=== PATIENT | female | born 1985 | race Caucasian/White ===

== ENCOUNTER 2020-03-10 04:55 | Inpatient (IN) ==
[2020-03-10] MEDS ORDERED: OXYTOCIN 20 UNITS in RINGER'S SOLUTION,LACTATED 1,000 ML IV ONE (05:03)
[2020-03-10 05:24] LABS: Hematocrit 34.8 % (37.0-47.0); Hemoglobin 12.1 gm/dL (12.5-16.0); Mean Cell Volume 87.7 fl (78-100); Mean Corpuscular Hemoglobin 30.5 pg (27-31); Mean Corpuscular Hgb Conc 34.8 g/dl (32-36); Mean Platelet Volume 11.1 fl (8-12.5); Neutrophil # 6.8 K/mm3 (1.3-6.0); Neutrophil % 61.5 % (42-75.0); Platelet Count 230 K/mm3 (150-450); Red Blood Count 3.97 M/mm3 (4.2-5.4); Red Cell Distribution Width 12.2 % (11.5-14.0); White Blood Count 11.1 K/mm3 (4.0-10.5)
[2020-03-10] MEDS: RINGER'S SOLUTION,LACTATED 1,000 ML IV PRN ×3 (05:31→08:16)
[2020-03-10 05:36] LABS: Albumin * 2.5 gm/dl (3.4-5.0); Anion Gap 16.3 mmol/L (6.8-13.8); BUN/Creatinine Ratio 11.9 (9.0-21.6); Bilirubin, Total 0.3 mg/dL (0.0-1.1); Ca. Corrected For Albumin 9.3 mg/dL (8.4-10.2); Calcium * 8.4 mg/dL (7.9-10.9); Carbon Dioxide 20.8 mmol/L (24-32.6); Potassium 4.1 mmol/L (3.4-4.6); Total Protein 6.4 gm/dL (6.2-8.2)
[2020-03-10 05:42] LABS: Cocaine Ur Negative (NEGATIVE); Urine Barbiturate Negative (NEGATIVE); Urine Benzodiazepines Negative (NEGATIVE); Urine Opiates Negative (NEGATIVE); Urine PCP Negative (NEGATIVE); Urine THC Negative (NEGATIVE)
[2020-03-10] MEDS ORDERED: ceFAZolin SODIUM 1 GM VIAL ONE (06:28)
--- NOTE | 2020-03-10 06:29 | HP ---
Chief Complaint - Chief Complaint Date of Service: 03/10/20 Time of Service: 06:10 History of Present Illness: 34 yo at 37 weeks presents to L&D for primary c/s due to complicated by preeclampsia with marginal previa. Patient developed elevated blood pressures early in her 36th week that have bordered on severe range. Protein/Cr ratio was over 800. Patient denies s/s of severe features. This complicated by advanced maternal age, hypothyroid, compound heterozygous MTHFR, recurrent SAB, preeclampsia, and marginal placenta previa 9mm from internal os of cervix. 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) Advanced maternal age (AMA) in Onset Date: 09/11/19 MTHFR gene mutation Onset Date: 01/05/19 Pre-eclampsia affecting , antepartum Onset Date: 03/07/20 Depression Onset Date: Unknown Eczema Onset Date: Unknown Hypothyroidism Onset Date: ~2004 Migraine Onset Date: Unknown Wears glasses Onset Date: Unknown Chemical Onset Date: Unknown x3-2 @ [facility] following IUI's Finger injury Onset Date: 04/19/16 Rt 5th Spontaneous Onset Date: ~10/2018 Following IVF Irregular menses Onset Date: 03/05/14 Surgical History: Surgical History (Last Reviewed 03/07/20 @ 09:36 by Raphael Lenz RN) History of dilation and curettage Onset Date: ~08/2018 for polyp, 12/2018 for sab Family History: Family History (Last Reviewed 03/07/20 @ 09:36 by Raphael Lenz RN) Aunt Thyroid disease Grandfather Hypertension Myocardial infarction Grandmother Diabetes maternal Cancer colon Grandmother Breast cancer paternal Mother Diverticulitis Father Alive and well Social History: (Last Reviewed 03/07/20 @ 09:36 by Raphael Lenz RN) Social History: adopted: No usp: No Marital status: household members: spouse number of children: 0 current occupational status: employed current occupation: [employer] current occupational exposures/hazards: Yes current occupational exposures/hazards comment: radiation Highest education level completed: Associate degree: academi Sexually Active: Yes Service: No Tobacco: Smoking Status: Never smoker Alcohol: alcohol intake: current alcohol intake frequency: a few times a month details: no alcohol since + UPT Substance Use: substance use type: does not use Dietary Habits: caffeine: Yes caffeine comment: 1-2/day Type: tea, carbonated beverages Exercise: Physical activity functional status: normal ROM and activity frequency: other Tonya/Gnosticist: agree to transfusion: Yes Allergies/Adverse Reactions: Allergies Allergy/AdvReac Type Severity Reaction Status Date / Time penicillin V Allergy Verified 03/10/20 05:15 Sulfa (Sulfonamide Allergy Verified 03/10/20 05:15 Antibiotics) Home Medications: HOME MEDICATIONS ascorbic acid (vitamin C) 500 mg capsule 500 mg PO DAILY cap 05/18/18 [Last Taken 03/09/20 21:00] vitamin B complex 1 tab PO DAILY 05/18/18 [Last Taken 03/09/20 21:00] PNV no.151-iron 27 mg-folic 800 mcg-omega3 260 fr-xge-jie-fish capsule 1 cap PO DAILY cap 09/11/19 [Last Taken 03/09/20] cholecalciferol (vitamin D3) 125 mcg (5,000 unit) capsule 5,000 unit PO DAILY 09/11/19 [Last Taken 03/09/20 21:00] coenzyme Q10 200 mg capsule 200 mg PO DAILY 09/11/19 [Last Taken 03/09/20 21:00] folic acid-vit B6-vit B12 2.2 mg-25 mg-1 mg tablet 2 tab PO DAILY tab 09/11/19 [Last Taken 03/09/20 21:00] levothyroxine 100 mcg capsule 100 mcg PO DAILY 09/11/19 [Last Taken 03/10/20 04:00] selenium 200 mcg capsule 200 mcg PO DAILY 09/11/19 [Last Taken 03/09/20 21:00] Exam - Exam Vital Signs: Vital Signs - Last Taken Temp 36.3 C 03/10/20 05:13 Pulse 92 03/10/20 05:13 Resp 20 03/10/20 05:13 BP 166/96 H 03/10/20 05:13 Pulse Ox 96 03/10/20 05:13 Repeat BP 154/92 Constitutional: Present: Alert, Oriented x3, Cooperative, No distress ENT Exam: Present: hearing grossly normal Neck: Absent: thyromegaly Breasts: Present: Exam deferred Respiratory: Present: lungs clear, no respiratory distress Cardiovascular/Chest: Present: regular rate, rhythm, no edema Abdomen: Present: soft, nontender, no rebound tenderness, other - gravid /Rectal: Present: Exam deferred Extremity: Present: non-tender, no calf tenderness, lower extremity edema - 1-2+ Skin Exam: Present: normal color, warm/dry, no cyanosis Neurologic: Present: normal mood/affect, oriented x 3, other - DTR - 2/4, no clonus Appearance: Present: appropriate appearance, appropriate insight Eye contact: Present: good eye contact Thoughts: Present: normal thought pattern, normal mood /affect Diagnostic Studies: Abnormal Lab Results 03/10/20 03/10/20 Range/Units 05:15 05:15 WBC 11.1 H (4.0-10.5) K/mm3 RBC 3.97 L (4.2-5.4) M/mm3 Hgb 12.1 L (12.5-16.0) gm/dL Hct 34.8 L (37.0-47.0) % Immature Gran # (Auto) 0.05 H (0.000-0.0310) K/mm3 Neutrophils # 6.8 H (1.3-6.0) K/mm3 Carbon Dioxide 20.8 L (24-32.6) mmol/L Anion Gap 16.3 H (6.8-13.8) mmol/L Random Glucose 68 L (70-110) mg/dL Alkaline Phosphatase 194 H (50-170) U/L Albumin 2.5 L (3.4-5.0) gm/dl Laboratory Results WBC 11.1 K/mm3 (4.0-10.5) H 03/10/20 05:15 RBC 3.97 M/mm3 (4.2-5.4) L 03/10/20 05:15 Hgb 12.1 gm/dL (12.5-16.0) L 03/10/20 05:15 Hct 34.8 % (37.0-47.0) L 03/10/20 05:15 MCV 87.7 fl (78-100) 03/10/20 05:15 MCH 30.5 pg (27-31) 03/10/20 05:15 MCHC 34.8 g/dl (32-36) 03/10/20 05:15 RDW 12.2 % (11.5-14.0) 03/10/20 05:15 Plt Count 230 K/mm3 (150-450) 03/10/20 05:15 MPV 11.1 fl (8-12.5) 03/10/20 05:15 Immature Gran % (Auto) 0.40 % (0.001-0.429) 03/10/20 05:15 Immature Gran # (Auto) 0.05 K/mm3 (0.000-0.0310) H 03/10/20 05:15 Neutrophils % 61.5 % (42-75.0) 03/10/20 05:15 Lymphocytes % 30.2 % (20-51) 03/10/20 05:15 Monocytes % 6.0 % (0.0-9) 03/10/20 05:15 Eosinophils % 1.5 % (0.0-3.0) 03/10/20 05:15 Basophils % 0.4 % (0.0-1.0) 03/10/20 05:15 Nucleated RBC % 0.0 k/mm3 (0-1) 03/10/20 05:15 Neutrophils # 6.8 K/mm3 (1.3-6.0) H 03/10/20 05:15 Lymphocytes # 3.36 k/mm3 (1.5-3.5) 03/10/20 05:15 Monocytes # 0.7 k/mm3 (0.0-1.0) 03/10/20 05:15 Eosinophils # 0.2 k/mm3 (0.0-0.7) 03/10/20 05:15 Absolute Basophils 0.1 k/mm3 (0.0-0.1) 03/10/20 05:15 Sodium 139 mmol/L (132-142) 03/10/20 05:15 Plasma Sodium 138 mmol/L (130-142) 03/10/20 05:15 Potassium 4.1 mmol/L (3.4-4.6) 03/10/20 05:15 Chloride 106 mmol/L (97-106) 03/10/20 05:15 Carbon Dioxide 20.8 mmol/L (24-32.6) L 03/10/20 05:15 Anion Gap 16.3 mmol/L (6.8-13.8) H 03/10/20 05:15 BUN 12 mg/dL (3-23) 03/10/20 05:15 Creatinine 1.01 mg/dL (0.4-1.4) 03/10/20 05:15 Est GFR (Non-Af Amer) 66 mL/min (60-130) 03/10/20 05:15 BUN/Creatinine Ratio 11.9 (9.0-21.6) 03/10/20 05:15 Random Glucose 68 mg/dL (70-110) L 03/10/20 05:15 Calcium 8.4 mg/dL (7.9-10.9) 03/10/20 05:15 Calcium Adj for Albumin 9.3 mg/dL (8.4-10.2) 03/10/20 05:15 Total Bilirubin 0.3 mg/dL (0.0-1.1) 03/10/20 05:15 AST 28 U/L (0-48) 03/10/20 05:15 ALT 23 U/L (19-67) 03/10/20 05:15 Alkaline Phosphatase 194 U/L (50-170) H 03/10/20 05:15 Total Protein 6.4 gm/dL (6.2-8.2) 03/10/20 05:15 Albumin 2.5 gm/dl (3.4-5.0) L 03/10/20 05:15 Urine Opiates Screen Negative (NEGATIVE) 03/10/20 05:32 Barbiturate Screen Negative (NEGATIVE) 03/10/20 05:32 Ur Phencyclidine Scrn Negative (NEGATIVE) 03/10/20 05:32 Urine Amphetamine Negative (NEGATIVE) 03/10/20 05:32 U Benzodiazepines Scrn Negative (NEGATIVE) 03/10/20 05:32 Urine Cocaine Screen Negative (NEGATIVE) 03/10/20 05:32 Urine Marijuana (THC) Negative (NEGATIVE) 03/10/20 05:32 Blood Type O Positive 03/10/20 05:15 Antibody Screen Negative 03/10/20 05:15 Assessment/Plan - Assessment/Plan (1) Preeclampsia Assessment: Admitted at 37 wks for delivery due to preeclampsia. Because of marginal previa being only 9mm from os, the r/b/a of vaginal delivery vs c/s were discussed with patient last week. I reviewed current medical literature from [facility] with her regarding the risks of each option. Patient and spouse have decided to proceed with c/s. Will proceed with primary low transverse section. Problem: Acute Qualifiers: Trimester: third trimester Qualified Code(s): O14.93 - Unspecified pre- eclampsia, third trimester (2) Marginal placenta previa Problem: Chronic (3) Compound heterozygous MTHFR mutation [id number] Problem: Chronic (4) History of recurrent , currently Problem: Chronic (5) Hypothyroid Problem: Chronic Qualifiers: Hypothyroidism type: unspecified (6) Advanced maternal age (AMA) in Problem: Chronic Non Stress Test - Status NST: 03/10/20 Reason for NST: preeclampsia Monitor Mode: External Acceleration: Present Decelerations: None Variability: Moderate 6-25 bpm Baseline Heart Rate: 135 Activity: reactive - Assessment NST Assessment: preeclampsia - Plan NST Plan: Admit to L&D
[2020-03-10] MEDS ORDERED: ONDANSETRON HCL/PF 2 MG/ML VIAL ONE (06:36)
[2020-03-10] MEDS ORDERED: EPINEPHrine 1 MG/ML AMPUL ONE (06:36)
[2020-03-10] MEDS ORDERED: NORMAL SALINE 20 ML VIAL ONE (06:36)
[2020-03-10] MEDS ORDERED: BUPIVACAINE HCL/EPINEPHRINE 50 ML VIAL IJ ONE (06:37)
--- NOTE | 2020-03-10 06:50 | ANES ---
Anesthesia Pre Procedure Eval Vitals/Labs: Last Vital Signs Temp 36.3 C 03/10/20 05:13 Pulse 92 03/10/20 05:13 Resp 20 03/10/20 05:13 BP 166/96 H 03/10/20 05:13 Pulse Ox 96 03/10/20 05:13 HOME MEDICATIONS ascorbic acid (vitamin C) 500 mg capsule 500 mg PO DAILY cap 05/18/18 [Last Taken 03/09/20 21:00] vitamin B complex 1 tab PO DAILY 05/18/18 [Last Taken 03/09/20 21:00] PNV no.151-iron 27 mg-folic 800 mcg-omega3 260 le-prt-dyu-fish capsule 1 cap PO DAILY cap 09/11/19 [Last Taken 03/09/20] cholecalciferol (vitamin D3) 125 mcg (5,000 unit) capsule 5,000 unit PO DAILY 09/11/19 [Last Taken 03/09/20 21:00] coenzyme Q10 200 mg capsule 200 mg PO DAILY 09/11/19 [Last Taken 03/09/20 21:00] folic acid-vit B6-vit B12 2.2 mg-25 mg-1 mg tablet 2 tab PO DAILY tab 09/11/19 [Last Taken 03/09/20 21:00] levothyroxine 100 mcg capsule 100 mcg PO DAILY 09/11/19 [Last Taken 03/10/20 04:00] selenium 200 mcg capsule 200 mcg PO DAILY 09/11/19 [Last Taken 03/09/20 21:00] Allergies/Adverse Reactions: Allergies Allergy/AdvReac Type Severity Reaction Status Date / Time penicillin V Allergy Verified 03/10/20 05:15 Sulfa (Sulfonamide Allergy Verified 03/10/20 05:15 Antibiotics) - Planned Procedure Planned Procedure: induction Medication List Reviewed:: Yes Allergies Verified: Yes Medical History (Last Reviewed 03/10/20 @ 06:49 by Chas Sarmiento CRNA) Hypothyroid (Chronic) History of recurrent , currently (Chronic) Compound heterozygous MTHFR mutation [id number] (Chronic) Advanced maternal age (AMA) in Onset Date: 09/11/19 MTHFR gene mutation Onset Date: 01/05/19 Pre-eclampsia affecting , antepartum Onset Date: 03/07/20 Depression Onset Date: Unknown Eczema Onset Date: Unknown Hypothyroidism Onset Date: ~2004 Migraine Onset Date: Unknown Wears glasses Onset Date: Unknown Chemical Onset Date: Unknown x3-2 @ [facility] following IUI's Finger injury Onset Date: 04/19/16 Rt 5th Spontaneous Onset Date: ~10/2018 Following IVF Irregular menses Onset Date: 03/05/14 Surgical History (Last Reviewed 03/10/20 @ 06:49 by Chas Sarmiento CRNA) History of dilation and curettage Onset Date: ~08/2018 for polyp, 12/2018 for sab Family History (Last Reviewed 03/10/20 @ 06:49 by Chas Sarmiento CRNA) Aunt Thyroid disease Grandfather Hypertension Myocardial infarction Grandmother Diabetes maternal Cancer colon Grandmother Breast cancer paternal Mother Diverticulitis Father Alive and well - Family Anesthesia History Family History:: no untoward family reactions to anesthesia - Airway/Neck/Teeth Within Normal Limits:: Yes Teeth Condition: intact Neck Exam: full range of motion Mallampatti Score: 2 Thyromental (T-M) distance: > 6 cm Mandibulo Hyoid distance: > 3 cm - Respiratory Respiratory Physical: lungs clear Smoking Status: Never smoker Sleep Apnea currently treated: No Sleep Apnea by current assessment: No - Cardiovascular Tolerate Activity: Good Heart Sounds: S1 & S2, Regular - Gastrointestinal NPO since: MN - Anesthesia Assessment and Plan ASA Class: PS, II Anesthesia Type Plan: Spinal - TAP block Planned difficult intubation/equipment available: No
--- NOTE | 2020-03-10 08:31 | OR ---
Operative Report - Dictated Report Narrative: Indication: 34-year-old 5 para 0 at 37 0/7 weeks gestation admitted for primary low transverse section due to preeclampsia with marginal previa 0.9 cm from the cervical internal os. Status: Planned Pre Operative Diagnosis: 37 0/7 weeks intrauterine . Marginal placenta previa 0.9 cm from the cervical office. Preeclampsia. Post Operative Diagnosis: Same. Procedure Preformed: Primary Low Transverse Section Surgeon: Shanthi Cervantes DO Sales Service Supervisor: OR Staff Anesthesia: Spinal, TAP block Estimated Blood Loss: 350 mL Urine Output: 50 mL of clear urine Fluids Given: 2000 mL of crystalloid Drains: Hdez to gravity Surgical Complications: None Specimens: Placenta to pathology Findings: Male born at 0735 on 03/10/2021 with Apgars 8 and 9, weighing 2803 g in OP presentation with nuchal cord x1. Normal uterus, tubes, ovaries. Technique: The patient was taken to the operating room and placed in dorsal supine position with a left lateral tilt. After adequate spinal anesthesia, hdez catheter insertion,SCDs placed, and 2 g of Ancef given preoperatively, the abdominal cavity was entered via a modified Wu-Fuentes incision. Two rolled laps were placed in the pericolic gutters on either side of the uterus. A transverse incision was made in the lower uterine segment and extended laterally and upwardly with digital traction. Clear fluid was noted upon amniotomy. The was delivered easily. Nuchal cord was reduced after delivery of the head and prior to delivery of shoulders. The cord was clamped and cut after approximately 30 seconds and was handed off to awaiting quarrying specialist. The placenta was allowed to deliver spontaneously. The uterus was cleared of clot and debris. Uterine incision was closed with 0 Vicryl using a running stitch. A second imbricating layer was placed. Excellent hemostasis was noted. Rolled laps were removed from the abdominal cavitiy. The peritoneum was closed with a running 3-0 Monocryl. The same suture was used to approximate the rectus and pyramidalis muscles. The fascia was closed with a running 0 Vicryl. The subcutaneous layer was closed with a running 3-0 Monocryl. The same suture was used to approximate the subdermal layer. The skin was closed with a running 4-0 Monocryl and Dermabond. Sponge, lap, needle, and instrument count were correct x 2. Disposition: The patient was transferred to post anesthesia care unit in good condition History for MU History for MU Definition: * The number of deliveries resulting in a live the patient experienced prior to current hospitalization * The previous delivery of live twins or any live multiple gestation is considered one live event. *If primagravida or nulliparous is documented select zero for the number of previous live births. Live Events: Live Events: 0
[2020-03-10] MEDS ORDERED: BISACODYL 10 MG SUPP.RECT RC PRN (09:14)
[2020-03-10] MEDS ORDERED: SENNOSIDES 8.6 MG TABLET PO PRN (09:14)
[2020-03-10] MEDS ORDERED: ONDANSETRON HCL/PF 2 MG/ML VIAL IV PRN (09:14)
[2020-03-10] MEDS ORDERED: IBUPROFEN 800 MG TABLET PO PRN (09:14)
[2020-03-10] MEDS ORDERED: SIMETHICONE 80 MG TAB.CHEW PO PRN (09:14)
[2020-03-10] MEDS: IBUPROFEN 800 MG TABLET PO PRN ×3 (09:33→22:10)
[2020-03-10] MEDS: DOCUSATE SODIUM 100 MG CAPSULE PO SCH ×2 (09:33→20:55)
[2020-03-10] MEDS: oxyCODONE HCL/ACETAMINOPHEN 1 TAB TABLET PO PRN ×4 (12:40→23:23)
--- NOTE | 2020-03-10 15:34 | ANES ---
Post Anesthesia Discharge - Transfer of Care Transfer of Care handoff given to nurse: Yes - Discharge from PACU Discharge from PACU when meets criteria: Yes
--- NOTE | 2020-03-10 15:35 | ANES ---
Post Anesthesia Assessment - Vital Signs Vitals: Last Vital Signs Temp 35.8 C L 03/10/20 13:30 Pulse 72 03/10/20 14:33 Resp 18 03/10/20 14:33 BP 146/88 H 03/10/20 14:33 Pulse Ox 97 03/10/20 14:33 Airway Patency: Normal - Mental Status Level Of Consciousness: Awake - Pain Level Pain Score: 0 - N/V Assessment Nausea/Vomiting Presence: None Dehydration:: No
--- NOTE | 2020-03-10 15:38 | ANES ---
Anesthesia Procedure Note Procedure Note: ANESTHESIA PROCEDURE NOTE Date of procedure: 03/10/2020. Time of procedure: 06 15. Performed by: Rom Sarmiento CRNA Staff Development Coordinator: Erica Mauro RN . Preprocedure diagnosis: section for partial placenta previa. Post procedure diagnosis: Same. Procedure: Ultrasound-guided bilateral tap Indications: Postoperative analgesia Findings: Patient was placed in a supine position in the PACU. Her right abdominal wall was prepped with ChloraPrep. Ultrasound was utilized to identify the internal oblique and trans-abdominus muscles. A 20-gauge 4 inch regional block needle was advanced under ultrasound guidance until tip of needle was positioned just distal to fascial layer that separates the internal oblique and trans-abdominus muscles. 20 mL of 0.25% Marcaine with epinephrine 1-200,000 was injected with adequate spread of local anesthesia noted. Regional block needle was removed intact. Procedure was repeated on patient's left side. EBL: Minimal. Fluids: N/A. Specimen: N/A. Post procedure condition: The patient tolerated the procedure well. No complications were noted. Thank you for this consultation Rom Sarmiento CRNA
[2020-03-10] MEDS: ENOXAPARIN SODIUM 40 MG/0.4 ML SYRG SC SCH (16:08)
[2020-03-11] MEDS: oxyCODONE HCL/ACETAMINOPHEN 1 TAB TABLET PO PRN ×3 (04:37→13:36)
[2020-03-11] MEDS: IBUPROFEN 800 MG TABLET PO PRN ×3 (04:38→17:27)
[2020-03-11] MEDS ORDERED: ceFAZolin SODIUM 1 GM VIAL IV PRN (06:00)
--- NOTE | 2020-03-11 08:37 | PN ---
Subjective - Date and Time Seen Date: 03/11/20 Time: 08:35 Objective - Vitals Vitals: Last Vital Signs Temp 36.6 C 03/11/20 07:17 Pulse 72 03/11/20 07:17 Resp 18 03/11/20 07:17 BP 142/83 H 03/11/20 07:17 Pulse Ox 99 03/11/20 07:17 Patient denies complaints. Specifically denies headache, visual changes, or epigastric pain. Tolerating regular diet. Ambulating without difficulty. Pain well controlled. Lochia wnl. Abdomen - soft, appropriately tender Incision -clean, dry, intact uterus - firm, at umbilicus -1 DTR-2/4. Lower extremity edema 2+. No calf tenderness Impression: Post op day #1 s/p primary section. Preeclampsia. Compound heterozygous MTHFR. Plan: Continue routine post-operative/ care. Continue to monitor blood pressure closely. Cauti Physician Documentation - Urinary Catheter Management Urethral (Moe) Date of Insertion: 03/10/20 Time of Insertion: 07:20 Assessment/Plan - Problems/Diagnosis (1) Preeclampsia Problem: Acute Qualifiers: Trimester: third trimester Qualified Code(s): O14.93 - Unspecified pre- eclampsia, third trimester (2) Marginal placenta previa Problem: Chronic (3) Compound heterozygous MTHFR mutation [id number] Problem: Chronic (4) History of recurrent , currently Problem: Chronic (5) Hypothyroid Problem: Chronic Qualifiers: Hypothyroidism type: unspecified (6) Advanced maternal age (AMA) in Problem: Chronic
[2020-03-11] MEDS: ASCORBIC ACID 500 MG TABLET PO SCH (09:41)
[2020-03-11] MEDS: PRENATAL VITS96/IRON FUM/FOLIC 1 TAB TABLET PO SCH (09:41)
[2020-03-11] MEDS: DOCUSATE SODIUM 100 MG CAPSULE PO SCH ×2 (09:41→21:28)
[2020-03-11] MEDS: VITAMIN B COMP W-C 1 TAB TABLET PO SCH (09:42)
[2020-03-11] MEDS: PYRIDOXINE PO SCH (09:42)
[2020-03-11] MEDS: CYANOCOBALAMIN PO SCH (09:42)
[2020-03-11] MEDS: LEVOTHYROXINE SODIUM 100 MCG TABLET PO SCH (09:42)
[2020-03-11] MEDS: UBIDECARENONE 200 MG PO SCH (09:42)
[2020-03-11] MEDS: SELENIUM 200 MCG PO SCH (09:42)
[2020-03-11] MEDS: FOLIC ACID PO SCH (09:42)
[2020-03-11] MEDS: CHOLECALCIFEROL 5,000 UNIT TABLET PO SCH (09:43)
[2020-03-11] MEDS: ENOXAPARIN SODIUM 40 MG/0.4 ML SYRG SC SCH (17:22)
[2020-03-12] MEDS: IBUPROFEN 800 MG TABLET PO PRN ×3 (00:19→17:28)
[2020-03-12] MEDS: oxyCODONE HCL/ACETAMINOPHEN 1 TAB TABLET PO PRN ×2 (01:57→07:20)
--- NOTE | 2020-03-12 08:39 | PN ---
Subjective - Date and Time Seen Date: 03/12/20 Time: 08:36 Objective - Vitals Vitals: Last Vital Signs Temp 36.7 C 03/12/20 07:20 Pulse 66 03/12/20 07:20 Resp 18 03/12/20 07:20 BP 137/79 03/12/20 07:20 Pulse Ox 98 03/12/20 07:20 Patient denies complaints. Ambulating well. Tolerating regular diet. Pain well controlled. Lochia wnl. Abdomen - soft, appropriately tender Incision -clean, dry, intact uterus - firm, at umbilicus -2 1+ pitting edema in lower extremities. No calf tenderness Impression: Post op day #2 s/p primary section. Preeclampsia- resolving Plan: Continue routine post-operative/ care Cauti Physician Documentation - Urinary Catheter Management Urethral (Moe) Date of Insertion: 03/10/20 Time of Insertion: 07:20 Assessment/Plan - Problems/Diagnosis (1) Preeclampsia Problem: Acute Qualifiers: Trimester: third trimester Qualified Code(s): O14.93 - Unspecified pre- eclampsia, third trimester (2) Marginal placenta previa Problem: Chronic (3) Compound heterozygous MTHFR mutation [id number] Problem: Chronic (4) History of recurrent , currently Problem: Chronic (5) Hypothyroid Problem: Chronic Qualifiers: Hypothyroidism type: unspecified (6) Advanced maternal age (AMA) in Problem: Chronic
[2020-03-12] MEDS: DOCUSATE SODIUM 100 MG CAPSULE PO SCH ×2 (09:16→20:08)
[2020-03-12] MEDS: VITAMIN B COMP W-C 1 TAB TABLET PO SCH (09:16)
[2020-03-12] MEDS: PRENATAL VITS96/IRON FUM/FOLIC 1 TAB TABLET PO SCH (09:16)
[2020-03-12] MEDS: ASCORBIC ACID 500 MG TABLET PO SCH (09:16)
[2020-03-12] MEDS: CHOLECALCIFEROL 5,000 UNIT TABLET PO SCH (09:16)
[2020-03-12] MEDS: LEVOTHYROXINE SODIUM 100 MCG TABLET PO SCH (09:16)
[2020-03-12] MEDS: FOLIC ACID PO SCH (09:26)
[2020-03-12] MEDS: CYANOCOBALAMIN PO SCH (09:26)
[2020-03-12] MEDS: PYRIDOXINE PO SCH (09:26)
[2020-03-12] MEDS: SELENIUM 200 MCG PO SCH (09:27)
[2020-03-12] MEDS: UBIDECARENONE 200 MG PO SCH (09:27)
[2020-03-12] MEDS: ENOXAPARIN SODIUM 40 MG/0.4 ML SYRG SC SCH (16:02)
[2020-03-13] MEDS: DOCUSATE SODIUM 100 MG CAPSULE PO SCH (08:15)
[2020-03-13] MEDS: VITAMIN B COMP W-C 1 TAB TABLET PO SCH (08:15)
[2020-03-13] MEDS: PRENATAL VITS96/IRON FUM/FOLIC 1 TAB TABLET PO SCH (08:15)
[2020-03-13] MEDS: LEVOTHYROXINE SODIUM 100 MCG TABLET PO SCH (08:16)
[2020-03-13] MEDS: ASCORBIC ACID 500 MG TABLET PO SCH (08:16)
[2020-03-13] MEDS: CHOLECALCIFEROL 5,000 UNIT TABLET PO SCH (08:16)
[2020-03-13] MEDS: CYANOCOBALAMIN PO SCH (08:17)
[2020-03-13] MEDS: PYRIDOXINE PO SCH (08:17)
[2020-03-13] MEDS: UBIDECARENONE 200 MG PO SCH (08:17)
[2020-03-13] MEDS: SELENIUM 200 MCG PO SCH (08:17)
[2020-03-13] MEDS: FOLIC ACID PO SCH (08:17)
[2020-03-13 08:22] VITALS: BP 152/87
--- NOTE | 2020-03-13 09:09 | PN ---
Subjective - Date and Time Seen Date: 03/13/20 Time: 09:07 Objective - Vitals Vitals: Last Vital Signs Temp 37.0 C 03/13/20 08:08 Pulse 88 03/13/20 08:08 Resp 18 03/13/20 08:08 BP 152/87 H 03/13/20 08:21 Pulse Ox 98 03/13/20 08:08 Patient denies complaints. Ambulating without difficulty. Tolerating regular diet. Pain well controlled. Lochia wnl. Abdomen - soft, appropriately tender Incision - [clean, dry, intact] Uterus - firm, at umbilicus -[3] DTR-2/4, no clonus. No calf tenderness Impression: Post op day #3 s/p primary section. Preeclampsia-mild, resolving slowly. Compound heterozygous MTHFR with recurrent SAB. Plan: Routine discharge instructions. Preeclampsia precautions. Blood pressure daily. Lovenox for 6 weeks to prevent VTE. Follow-up in 1 week. Cauti Physician Documentation - Urinary Catheter Management Urethral (Moe) Date of Insertion: 03/10/20 Time of Insertion: 07:20 Assessment/Plan - Problems/Diagnosis (1) Preeclampsia Problem: Acute Qualifiers: Trimester: third trimester Qualified Code(s): O14.93 - Unspecified pre- eclampsia, third trimester (2) Marginal placenta previa Problem: Chronic (3) Compound heterozygous MTHFR mutation [id number] Problem: Chronic (4) History of recurrent , currently Problem: Chronic (5) Hypothyroid Problem: Chronic Qualifiers: Hypothyroidism type: unspecified (6) Advanced maternal age (AMA) in Problem: Chronic
== END 2020-03-13 11:45 | disposition home or self-care (01) | DRG 787 ==
LOC: OB 04:55
PROVIDERS: ADMIT Obstetrics & Gynecology; ATTEND Obstetrics & Gynecology
CPT/HCPCS: 36415; 59025; 80053; 80307; 85025; 86850; 88307; 88888; J2405